=== PATIENT | female | born 1990 | race Caucasian/White ===

== ENCOUNTER 2021-11-29 13:03 | Outpatient (REF) | payer MEDICAID, SELFPAY ==
--- NOTE | ~2021-11-29 | XR_ITS ---
EXAMINATION: RIGHT HAND AND WRIST CLINICAL INFORMATION: Pain COMPARISON: None TECHNIQUE: 4 view right hand and wrist FINDINGS: There is no evidence of acute fracture or dislocation of the right hand or wrist. Joint spaces are maintained. No erosive changes seen. XR/XR hand wrist RT IMPRESSION: No significant bony abnormality of the right hand or wrist.
== END 2021-11-29 13:04 | disposition home or self-care (01) ==
LOC: HO.XRAY 13:03
PROVIDERS: PCP Nurse Practitioner; Visit Provider Nurse Practitioner
DX: M25.531 Pain in right wrist (principal)
CPT/HCPCS: 73110; 73130

== ENCOUNTER → 2022-01-17 13:19 | Outpatient (BNVA) | payer MEDICAID, SELFPAY | PROVIDERS: PCP Nurse Practitioner; Visit Provider Surgery | DX: M25.431 Effusion, right wrist (principal) | CPT/HCPCS: 99202 ==

== ENCOUNTER 2022-03-14 08:23 | Outpatient (REF) | payer MEDICAID, SELFPAY | END 2022-03-14 08:24 | disposition home or self-care (01) | LOC: HO.HOSX 08:23 | PROVIDERS: Visit Provider Orthopaedic Surgery | DX: Z13.89 Encounter for screening for other disorder (principal) ==

== ENCOUNTER 2025-04-07 08:27 | Outpatient (REF) | payer MEDICAID, SELFPAY ==
[2025-04-07 11:29] LABS: Hematocrit 40.0 % (37.0-47.0); Hemoglobin 13.9 g/dl (12.0-16.0); Mean Corpuscular HGB Conc 34.8 g/dl (31.0-35.0); Mean Corpuscular Hemoglobin 30.2 pg (27.0-33.0); Mean Corpuscular Volume 86.8 fL (80.0-98.0); NRBC Abs Auto 0.000 X10*3/uL (0.0-0.012); NRBC Pct Auto 0.0 /100WBC (0.0-0.2); Platelet Count 373 X10*3/uL (160-400); Red Blood Count 4.61 X10*6/uL (4.20-5.50); White Blood Count 9.4 X10*3/uL (4.8-10.8)
[2025-04-07 11:48] LABS: Hemoglobin A1C 137.5319 umol/L; Total Hemoglobin (HGBA1C) 3574.5972 umol/L
[2025-04-07 11:53] LABS: Alanine Aminotransferase 47 U/L (0-31); Albumin Level 4.5 g/dL (3.5-5.0); Alkaline Phosphatase 81 U/L (39-117); Anion Gap 10 (12-20); Aspartate Amino Transferase 34 U/L (5-31); Blood Urea Nitrogen 12 mg/dL (9-16); Calcium 9.3 mg/dL (8.4-10.2); Carbon Dioxide 24 mmol/L (22-29); Chloride 108 mmol/L (96-108); Cholesterol 189 mg/dL (<200); Estimated Glomerular Filt Rate > 60; HDL Cholesterol 58 mg/dL (>40); Potassium 4.1 mmol/L (3.3-5.1); Sodium 138 mmol/L (135-145); Total Protein 7.4 g/dL (6.5-8.0); Triglycerides 206 mg/dL (<150)
[2025-04-08 04:58] LABS: Syphilis Screen Nonreactive (Nonreactive)
[2025-04-08 06:00] LABS: HBS Num1 0.00 mIU/mL (0-7.99); HBc Num1 0.07 S/CO (0.00-0.79); HBsAGNum1 0.47 S/CO (0.00-0.99); HIV Num 1 0.04 S/CO (0.00-0.99); Hepatitis B Surface Antigen Negative (Negative); ~HepC Num1 0.12 S/CO (0.00-0.79); ~Hepatitis B Surface Antibody NONREACTIVE (Nonreactive); ~Hepatitis C Antibody Nonreactive (Nonreactive)
[2025-04-08 06:53] LABS: Rubeola IgG (Measles) <13.50 AU/mL
== END 2025-04-07 08:28 | disposition home or self-care (01) ==
LOC: HO.HHCL 08:27
PROVIDERS: PCP Student in an Organized Health Care Education/Training Program; Visit Provider Student in an Organized Health Care Education/Training Program
DX: Z00.00 Encounter for general adult medical examination without abnormal findings (principal)
CPT/HCPCS: 36415; 80053; 80061; 82306; 83036; 84443; 85027; 86704; 86706; 86735; 86762; 86765; 86780; 86803; 87340; 87389

== ENCOUNTER 2025-04-14 09:23 | Outpatient (REF) | payer MEDICAID, SELFPAY ==
--- OUTSIDE RECORDS SUMMARY | 2025-04-14 09:00 | XMS_ITS | Encounter Summary ---
Author Organization [employer] Address [address] [facility] 7t [place] [address] Care Team Providers Care Service Assistant Name Role Phone Sandy Riddle MD Primary Care Pro vider Encounter Details Date Type Department Care Team (Latest Contact Info) Description 04/14/2025 9:00 AM EDT Office Visit [facility] MEDICINE [address] [place] [address] Sandy Riddle MD [address] [place] [address] Transaminitis (Primary Dx); Health care maintenance; Amenorrhea; Encounter for immunization Social History Tobacco Use Types Packs/Day Years Used Date Smoking Tobacco: Never Smokeless Tobacco: Never Tobacco Cessation:Counseling Given: Not Answered Alcohol Use Standard Drinks/Week Comments Defer 0 (1 standard drink = 0.6 oz pur e alcohol) Depression Answer Date Recorded Patient Health Questionnaire-9 Score 0 12/11/2024 Patient Health Questionnaire-9 Score 0 12/11/2024 Last PHQ-9: Questionnaire Data Not on file 0 12/11/2024 Housing Stability Answer Date Recorded What is your housing situation today? I have blair peterson 01/21/[address] you li ve. Do you have problems with any of the following? None of the above 01/21/2024 Food Insecurity Answer Date Recorded Within the past 12 months, y ou worried that your food would run out before you got money to buy more: Never True 12/04/2024 Within the past 12 months,th e food you bought just didn't last and you didn't have enough money to get more: Never True Transportation Answer Date Recorded In the past 12 months, has l ack of transportation kept you from medical appts, meetings, work or from getting things needed for daily living? No 12/04/2024 Utilities Answer Date Recorded In the past 12 months, has t he electric, gas, oil or water company threatened to shut off services in your home? No 01/21/2024 Depression Answer Date Recorded Patient Health Questionnaire-2 Score 0 12/11/2024 Internet Access Answer Date Recorded Internet Access Q1 Yes 03/23/2024 Internet Access Q2 Not on file 03/23/2024 Comments No Sex and Gender Information Value Date Recorded Sex Assigned at Female 05/21/2022 10:31 AM EDT Legal Sex Female 10:31 AM EDT Gender Identity Choose not to disclose 10:31 AM EDT Sexual Orientation Straight 12/11/2024 10 :12 AM EDT documented as of this encounter Last Filed Vital Signs Vital Sign Reading Time Taken Comments Blood Pressure 132/82 04/14/2025 9:02 AM EDT Pulse 89 04/14/2025 9:02 AM EDT Temperature 36.2 C (97.1 F) 04/14/2025 9:02 AM EDT Respiratory Rate 20 04/14/2025 9:02 AM EDT Oxygen Saturation 99% 04/14/2025 9:02 AM EDT Inhaled Oxygen Concentration - - Weight 81.6 kg (180 lb) 04/14/2025 9:02 AM EDT Height 154.1 cm (5' 0.67 ) 04/14/2025 9:02 AM ED T Body Mass Index 34.38 04/14/2025 9:02 AM EDT documented in this encounter Plan of Treatment Upcoming Encounters Date Type Department Care Team (Late st Contact Info) Description 05/14/2025 9:00 AM EDT Nutrition [facility] DIABETES/NUTRITION [address] [place] [address] [place] [address] Scheduled Orders Name Type Priority Associated Diagnoses Orde r Schedule Comprehensive Metabolic Panel Lab Routine Transaminitis Expected: 07/14/2025 (Approximate), Expires: 04/14/2026 documented as of this encounter Procedures Procedure Name Priority Date/Time Associated Diagnosis Comments POCT , URINE Routine 04/14/2025 9:33 AM EDT Amenorrhea CHLAMYDIA/TRICHOMON /NEISSERIA GONORRHOEAE, PCR, URINE Routine 04/14/2025 9:23 AM EDT Health care maintenance documented in this encounter Results * POCT Urine (04/14/2025 9:33 AM EDT) Preg Test, Ur Negative Negative, Indeterminate, None Detected, Invalid, Specimen unsatisfactory for evaluation, Weakly Positive, 2+ QC Media Lot # [id number] Lot# Expiration Date [id number] Urine 04/14/2025 9:33 AM EDT Sandy Wesley MD POINT OF CARE MIKAELA T ENTER/EDIT ORDERABLES Final Result * Chlamydia/Trichomonas/Neisseria gonorrhoeae, PCR, Urine (04/14/2025 9:23 AM EDT) CT PCR, Urine NOT DETECTED Not Detect. [facility] Comment:A not detected test result does not exclude the possibilityof infection because test results can be affected byimproper specimen collection, concurrent antibiotic therapy,or the number of organisms in the specimen which may bebelow the sensitivity of the test. As with many diagnostictests, results from the Xpert CT/NG assay should beinterpreted in conjunction with other laboratory andclinical data available to the clinician.The Xpert CT/NG assay should not be used for the evaluationof suspected sexual abuse or for other medico-legalindications. Additional testing is recommended in anycircumstance when false positive or false negative resultscould lead to adverse medical, social or psychologicalconsequences. NG PCR, Urine NOT DETECTED Not Detect. [facility] Comment:A not detected test result does not exclude the possibilityof infection because test results can be affected byimproper specimen collection, concurrent antibiotic therapy,or the number of organisms in the specimen which may bebelow the sensitivity of the test. As with many diagnostictests, results from the Xpert CT/NG assay should beinterpreted in conjunction with other laboratory andclinical data available to the clinician.The Xpert CT/NG assay should not be used for the evaluationof suspected sexual abuse or for other medico-legalindications. Additional testing is recommended in anycircumstance when false positive or false negative resultscould lead to adverse medical, social or psychologicalconsequences. Urine (Urine, Random) 04/14/2025 9:23 AM EDT 04/14/2025 12:04 PM EDT us Sandy Wesley MD LAB URINE ORDERAB LES Final Result [facility] [address] [place] [phone] documented in this encounter Visit Diagnoses Diagnosis Transaminitis- Primary Nonspecific elevation of levels of transaminase or lactic acid dehydrogenase (LDH) Health care maintenance Amenorrhea Absence of menstruation Encounter for immunization documented in this encounter Additional Health Concerns Assessment Noted Time PHQ-9 Depression Total Score: 0 12/12/19 25 9:48 AM EDT documented as of this encounter Care Teams Service Assistant Relationship Specialty Start Date End Date Sandy Riddle MD [address] [place] [id number] PCP - General Internal Medicine 12/14/22 documented as of this encounter
[2025-04-14 13:49] LABS: CT PCR Urine NOT DETECTED (Not Detect.); NG PCR Urine NOT DETECTED (Not Detect.)
--- OUTSIDE RECORDS SUMMARY | 2025-04-14 14:54 | XMS_ITS | Encounter Summary ---
Author Organization [employer] Address [address] [facility] 7t [place] [address] Care Team Providers Care Lieutenant General Name Role Phone Sandy Riddle MD Primary Care Pro vider Encounter Details Date Type Department Care Team (Latest Contact Info) Description 04/07/2025 Results Follow-Up [facility] MEDICINE [address] [place] [phone] Sandy Riddle MD [address] [place] [address] CBC, Comprehensive Metabolic Panel, Hemoglobin A1c, Additional followed-up results: 3 Social History Tobacco Use Types Packs/Day Years Used Date Smoking Tobacco: Never Smokeless Tobacco: Never Alcohol Use Standard Drinks/Week Comments Defer 0 [...] AM EDT documented as of this encounter Miscellaneous Notes * Result Encounter Note - Sandy Wesley MD - 04/07/2025 9:17 PM EDT Please call patient to advise to come to already scheduled apt with me to go over abnormal labs Thanks documented in this encounter Plan of Treatment Upcoming Encounters Date Type Department Care Team (Late st Contact Info) Description 05/14/2025 9:00 AM EDT Nutrition [facility] DIABETES/NUTRITION [address] [place] [address] [place] [address] documented as of this encounter Visit Diagnoses Not on filedocumented in this encounter Additional Health Concerns Assessment Noted Time PHQ-9 Depression Total Score: 0 12/12/19 25 9:48 AM EDT documented as of this encounter Care Teams Lieutenant General Relationship Specialty Start Date End Date Sandy Riddle MD [address] [place] [address] PCP - General Internal Medicine 12/14/22 documented as of this encounter
--- OUTSIDE RECORDS SUMMARY | 2025-04-14 14:54 | XMS_ITS | Encounter Summary ---
Author Organization [employer] Address [address] [facility] [address]t [place] [address] Care Team Providers Care Machine Assembler Supervisor Name Role Phone Sandy Riddle MD Primary Care Pro vider Reason for Visit * Reason Onset Date Comments appt 04/10/2024 Encounter Details Date Type Department Care Team ([facility] st Contact Info) Description 04/10/2024 Telephone C ADULT DENTAL [address] [place] [address] Cat Taylor, DDS [address] [place] [address] appt Social History Tobacco Use Types Packs/Day Years Used Date Smoking Tobacco: Never Smokeless Tobacco: Never Housing Stability Answer Date Recorded What is your housing situation today? I have blair peterson 01/21/[address] you li ve. Do you have problems with any of the following? None of the above 01/21/2024 Food Insecurity Answer Date Recorded Within the past 12 months, y ou worried that your food would run out before you got money to buy more: Sometimes True 2023 Within the past 12 months,th e food you bought just didn't last and you didn't have enough money to get more: Sometimes True 01/21/2024 Transportation Answer Date Recorded In the past 12 months, has l ack of transportation kept you from medical appts, meetings, work or from getting things needed for daily living? Yes, it has kept me from non-medical meetings, work, or getting things that I need;Yes, it has kept me from medical appointments or getting medications. 01/21/2024 Utilities Answer Date Recorded In the past 12 months, has t he electric, gas, oil or water company threatened to shut off services in your home? No 01/21/2024 Internet Access Answer Date Recorded Internet Access Q1 Yes 03/23/2024 Internet Access Q2 Not on file 03/23/2024 Comments Unknown Sex and Gender Information Value Date Recorded Sex Assigned at Female 05/21/2022 10:31 AM EDT Legal Sex Female 10:31 AM EDT Gender Identity Choose not to disclose 10:31 AM EDT Sexual Orientation Straight 12/11/2024 10 :12 AM EDT documented as of this encounter Miscellaneous Notes * Telephone Encounter - Mariam Gaffney - 04/10/2024 9:38 AM EDT Patient called in to cancel her appt because missed bus. Patient would like new appt scheduled for a Saturday or Saturday. Out of PAR timeframe DR documented in this encounter Plan of Treatment Upcoming Encounters Date Type Department Care Team (Late st Contact Info) Description 05/14/2025 9:00 AM EDT Nutrition [facility] DIABETES/NUTRITION [address] [place] [address] [place] [address] documented as of this encounter Visit Diagnoses Not on filedocumented in this encounter Care Teams Machine Assembler Supervisor Relationship Specialty Start Date End Date Sandy Riddle MD [address] [place] [address] PCP - General Internal Medicine 12/14/22 documented as of this encounter
--- OUTSIDE RECORDS SUMMARY | 2025-04-14 14:54 | XMS_ITS | Encounter Summary ---
Author Organization [employer] Address [address] [facility] 7t [place] [address] Care Team Providers Care Paper Novelty Maker Name Role Phone Sandy Riddle MD Primary Care Pro vider Encounter Details Date Type Department Care Team (Latest Contact Info) Description 04/14/2025 Travel Social History Tobacco Use Types Packs/Day Years [...] AM EDT documented as of this encounter Plan of Treatment Upcoming Encounters Date Type Department Care Team (Late st Contact Info) Description 05/14/2025 9:00 AM EDT Nutrition [facility] DIABETES/NUTRITION [address] [place], [place] [phone] Kristi Duke RD [address] [place], [place] [phone] documented as of this encounter Visit Diagnoses Not on filedocumented in this encounter Additional Health Concerns Assessment Noted Time PHQ-9 Depression Total Score: 0 12/12/19 25 9:48 AM EDT documented as of this encounter Care Teams Paper Novelty Maker Relationship Specialty Start Date End Date Sandy Riddle MD [address] [place], [place] [phone] PCP - General Internal Medicine 12/14/22 documented as of this encounter
--- OUTSIDE RECORDS SUMMARY | 2025-04-14 14:54 | XMS_ITS | Encounter Summary ---
Author Organization [employer] Address [address] [facility] [address] 7[address] [place] [address] Care Team Providers Care Secret Code Expert Name Role Phone Sandy Riddle MD Primary Care Pro vider Encounter Details Date Type Department Care Team (Late st Contact Info) Description 08/02/2024 Orders Only [facility] MEDICINE [address] [place] [address] ProviderJamie MD Social History Tobacco Use Types Packs/Day Years Used Date Smoking Tobacco: Never Smokeless Tobacco: Never Housing Stability Answer Date Recorded What is your housing situation today? I have blair sing 01/21/[address] you li [...] Info) Description 05/14/2025 9:00 AM EDT Nutrition [facility] DIABETES/NUTRITION [address] [place], [place] [phone] Kristi Duke [address] [place], [place] [phone] documented as of this encounter Procedures Procedure Name Priority Date/Time Associated Diagnosis Comments HM PAP/HPV Routine 08/16/2023 2:18 PM EST documented in this encounter Results * HM PAP/HPV (08/16/2023 2:18 PM EST) Historical Provider HEALTH MAINTENANCE Final Result documented in this encounter Visit Diagnoses Not on filedocumented in this encounter Care Teams Secret Code Expert Relationship Specialty Start Date End Date Sandy Riddle MD [address] [place] [address] PCP - General Internal Medicine 12/14/22 documented as of this encounter
--- OUTSIDE RECORDS SUMMARY | 2025-04-14 14:54 | XMS_ITS | Encounter Summary ---
Author Organization [employer] [facility] Address [address] [facility] 7 [place] [address] Care Team Providers Care Stocking Inspector Name Role Phone Dejah ChaoP Primary Care Provider Sandy Harman MD Primary Care Pro vider Encounter Details Date Type Department Care Team (Latest Contact Info) Description 07/04/2021 Abstract [facility] CONVERSIONS Dental, Provider, DDS Social History Tobacco Use Types Packs/Day Years Used Date Smoking Tobacco: Never Assessed Comments Unknown Sex and Gender Information Value [...] Info) Description 05/14/2025 9:00 AM EDT Nutrition [facility] DIABETES/NUTRITION [address] [place] [address] [place] [address] documented as of this encounter Visit Diagnoses Not on filedocumented in this encounter Care Teams Stocking Inspector Relationship Specialty Start Date End Date Dejah Chao FNP PCP - General Family Medicine 03/13/22 12/13/22 Sandy Riddle MD [address] [place] [address] PCP - General Internal Medicine 12/14/22 documented as of this encounter
--- OUTSIDE RECORDS SUMMARY | 2025-04-14 14:54 | XMS_ITS | Clinical Summary ---
Author Organization [employer] Address [address] [facility] [address] [place] [address] Care Team Providers Care Instructional Aide Name Role Phone Sandy Riddle MD Primary Care Pro vider Allergies No known active allergies Medications cholecalciferol (Vitamin D-3) 25 MCG (1000 UT) tablet Take 1 tablet (25 mcg) by mouth Once per day. 90 tablet 1 04/14/2025 6 Active famotidine (Pepcid) 20 MG tablet Take 1 tablet (20 mg) by mouth if needed at bedtime for heartburn. 30 tablet 04/14/2025 5 Active Active Problems Problem Noted Date Diagnosed Date Hypertension in , p reeclampsia, severe, delivered/ 02/17/2025 Class 2 obesity 02/17/2025 History of recurrent miscarriages 01/04/2025 Overview (01/04/2025): Last in Jun 2019; at least 2 of these had very low levels HCGs followed by episode heavy bleeding. Normal SHG 05/03/2020 Non-Polish speaking patient 01/04/2025 Health care maintenance 12/12/2024 Gingival bleeding 02/27/2024 Elevated blood pressure affecting , ant epartum 12/27/2023 Pre-eclampsia in third trimester 12/27/2023 Nausea and vomiting during 08/16/2023 History of delivery, currently 08/14/2023 Overview (01/04/2025): Date of surgery: 06/10/21 at [facility] Reason for prior : Pre-eclampsia Incision type: low-transverse Records requested/reviewed: Contraindications to TOLAC include > 2 prior births, prior uterine rupture or dehiscence, prior transfundal incision (classical, T, or J incisions; myomectomy with incision into uterine cavity or by surgeon's discretion), interpregnancy interval < 6 months Anterior placenta NO If anterior, schedule level 2 US Delivery route counseling: Preferred mode of delivery: TOLAC Consent signed: If calculator score <60%, schedule MD consult at 35-37 weeks: SCORE 48.2% Calculator: [email or web address]--good culat or History of pre-eclampsia in prior , currently 08/14/2023 Overview (01/04/2025): Severe, delivered at 34 weeks Basline HELLP labs, P/C ratio: Baseline HELLP labs normal. P/C ratio 0.23 Baby ASA at 12-14 wks History of delivery, currently 08/14/2023 Overview (01/04/2025): Primary c/s at 34w2d at [facility] due to pre-eclampsia. Supervision of high risk in [facility] 08/14/2023 Overview (01/04/2025): CNM OB-CMI score: 1 [08/14/2023] Group PN care? * screening declines Baby ASA indicated--pt counseled Rh pos GC/Chlam neg PAP 2023 NILM/neg Flu 08/23/23 COVID-19 vaccinated x3 Hgb 12.4 GTT 94 Repeat RPR * Tdap * EPDS * PPBC * GBS * Infant Feeding Plan Breast Missing teeth, acquired 05/27/2023 Dental plaque 05/27/2023 Obesity 09/16/2021 Gestational hypertension 09/16/2021 Encounters Date Type Department Care Team Description 04/14/2025 9:00 AM EDT Office Visit [address] [phone] Sandy Riddle MD Transaminitis (Primary Dx); Health care maintenance; Amenorrhea; Encounter for immunization 04/14/2025 Travel 04/12/2025 Telephone [facility] [address] [place] [phone] Ermelinda Beltran [place] 04/07/2025 Results Follow-Up [facility] [address] [place] [phone] Sandy Riddle MD CBC, Comprehensive Metabolic Panel, Hemoglobin A1c, Additional followed-up results: 3 03/10/2025 9:00 AM EDT Office Visit [facility] [address] [place] [phone] Schmitz-Christine, Cat, DDS Full coverage crown needed for root canal-treated tooth (Primary Dx) 02/17/2025 9:00 AM EDT Office Visit [facility] [address] [place] [phone] Schmitz-Christine, Cat, DDS Full coverage crown needed for root canal-treated tooth (Primary Dx) 01/20/2025 Telephone [facility] [address] [place] [phone] Sandy Riddle MD Referral 01/13/[address] [phone] Sandy Riddle MD Referral from Last 3 Months Immunizations Immunization Administration Dates Next Due Influenza injectable quadriv alent preservative free 08/23/2023,05/11/2021 Influenza, IIV3, injectable 06/10/2018 Influenza, Unspecified 06/10/2018 Influenza, seasonal, injecta ble, preservative free 04/14/2025 MMR 06/21/2021 Pfizer Covid-19 Vaccine 12+ 07/24/2021,,10/19/2020 Tdap 12/31/2023,05/30/2021,06/10/2018 Family History Medical History Relation Name Comments DM2 Father DM2, heart disease Mother Relation Name Status Comments Father Mother Social History Tobacco Use Types Packs/Day Years [...] Orientation Straight 12/11/2024 10 :12 AM EDT Last Filed Vital Signs Vital Sign Reading [...] Mass Index 34.38 04/14/2025 9:02 AM EDT Plan of Treatment Upcoming Encounters Date Type Department Care Team (Late st Contact Info) Description 05/14/2025 9:00 AM EDT Nutrition [facility] [address] [place] [address] Kristi Duke, RD [address] [place] [address] Health Maintenance Due Date Last Done Comments Family Planning (PISQ) 2005 HPV Vaccines (1 - 3-dose series) 2005 Hepatitis A Vaccines (1 of 2 - Risk 2-dose series) 2009 Hepatitis B Vaccines (1 of 3 - 19+ 3-dose series) 2009 Dental X-Ray: Full Mouth 07/05/2024 07/04/2021 COVID-19 Vaccine ( season) 2025 07/24/2021, 11/16/2020, 10/19/2020 Dental Oral Exam 05/31/2025 11/27/2024, 12/2022, 08/22/2022 Dental Prophylaxis 06/27/2025 12/25/2024, 0 02/27/2024, 05/27/2023 SDOH Screening 12/04/2025 12/04/2024 Alcohol/Substance Use Screening 12/11/2025 12/11/2024 Depression Screening 12/11/2025 12/11/2024, 12/12/19 Disability Screening 12/11/2025 12/11/2024 Dental X-Ray: Bitewings 03/11/2026 03/10/20, 11/27/2024, 02/27/2024, Additional history exists Diabetes: Hemoglobin A1C 04/07/2026 04/07/2025 Tobacco Screening 04/14/2026 04/14/2025 Cervical Cancer Screening 08/16/2028 HPV/Cotest 08/16/2028 Pap Smear 08/16/2028 08/16/2023 Lipid Panel 04/07/2030 04/07/2025 DTaP/Tdap/Td Vaccines (4 - Td or Tdap) 12/30/2033 12/31/2023, 05/30/2021, 06/10/2018 Zoster Vaccines (1 of 2) 2040 RSV Patients and Patients Aged 60 years or older (1 - 1-dose 75+ series) 2065 HIV Screening Completed 04/07/2025 Hepatitis C Screening Completed 04/07/2025 Influenza Vaccine Completed 04/14/2025, , 05/11/2021, Additional history exists HIB Vaccines Aged Out No longer eligi ble based on patient's age to complete this topic IPV Vaccines Aged Out No longer eligi ble based on patient's age to complete this topic Meningococcal B Vaccine Aged Out No l onger eligible based on patient's age to complete this topic Meningococcal Vaccine Aged Out No reva nida eligible based on patient's age to complete this topic Pneumococcal Vaccine: Pediatrics (0 to 5 Years) and At-Risk Patients (6 to 49) Years Aged Out No longer eligible based on patient's age to complete this topic RSV under 20 months Aged Out No longe r eligible based on patient's age to complete this topic Rotavirus Vaccines Aged Out No longer eligible based on patient's age to complete this topic Procedures Procedure Name Priority Date/Time Associated Diagnosis Comments POCT , URINE Routine 04/14/2025 9:33 AM EDT Amenorrhea CHLAMYDIA/TRICHOMONAS/ NEISSERIA GONORRHOEAE, PCR, URINE Routine 04/14/2025 9:23 AM EDT Health care maintenance MEASLES, MUMPS, AND RUBELLA (MMR) AB (IGG) PANEL, IMMUNE STATUS Routine 04/07/2025 8:32 AM EDT Annual physical exam VITAMIN D,25-OH,TOTAL,IA Routine 04/07/2025 8:32 AM EDT Annual physical exam TSH W/REFLEX TO FT4 Routine 04/07/2025 8 :32 AM EDT Annual physical exam SYPHILIS SCREEN Routine 04/07/2025 8:32 AM EDT Annual physical exam LIPID PANEL, STANDARD Routine 04/07/2025 8:32 AM EDT Annual physical exam HIV 1/2 ANTIGEN/ANTIBODY, FOURTH GENERATION W/RFL Routine 04/07/2025 8:32 AM EDT Annual physical exam HEPATITIS C AB W/REFL TO HCV RNA, QN, PCR Routine 04/07/2025 8:32 AM EDT Annual physical exam HEPATITIS B SURFACE ANTIGEN, EIA Routine 04/07/2025 8:32 AM EDT Annual physical exam HEPATITIS B SURFACE ANTIBODY, QUALITATIVE Routine 04/07/2025 8:32 AM EDT Annual physical exam HEPATITIS B CORE AB TOTAL Routine 04/07/2025 8:32 AM EDT Annual physical exam HEMOGLOBIN A1C Routine 04/07/2025 8:32 AM EDT Annual physical exam COMPREHENSIVE METABOLIC PANEL Routine 04/07/2025 8:32 AM EDT Annual physical exam CBC Routine 04/07/2025 8:32 AM EDT Annual physical exam CASE PRESENTATION, DETAILED AND EXTENSIVE TREATMENT PLANNING Routine 03/10/2025 9:00 AM EDT Full coverage crown needed for root canal-treated tooth INTRAORAL - PERIAPICAL FIRST RADIOGRAPHIC IMAGE Routine 03/10/2025 9:00 AM EDT Full coverage crown needed for root canal-treated tooth BITEWING - SINGLE RADIOGRAPHIC IMAGE Routine 03/10/2025 9:00 AM EDT Full coverage crown needed for root canal-treated tooth 19 CROWN - PORCELAIN/CERAMIC Routine 03/10/2025 9:00 AM EDT Full coverage crown needed for root canal-treated tooth CASE PRESENTATION, DETAILED AND EXTENSIVE TREATMENT PLANNING Routine 02/17/2025 9:00 AM EDT Full coverage crown needed for root canal-treated tooth INTRAORAL - PERIAPICAL FIRST RADIOGRAPHIC IMAGE Routine 02/17/2025 9:00 AM EDT Full coverage crown needed for root canal-treated tooth 19 CROWN PREP Routine 02/17/2025 9:00 AM EDT Full coverage crown needed for root canal-treated tooth 19 PREFABRICATED POST AND CORE IN ADDITION TO CROWN Routine 02/17/2025 9:00 AM EDT Full coverage crown needed for root canal-treated tooth PROPHYLAXIS - ADULT Routine 12/25/2024 2 :00 PM EDT Dental plaque Missing teeth, acquired Gingival bleeding PERIODIC ORAL EVALUATION - ESTABLISHED PATIENT Routine 11/27/2024 11:00 AM EDT HM PAP/HPV Routine 08/16/2023 2:18 PM EST from Last 3 Months or Most Recently Relevant to Health Maintenance Results * POCT Urine (04/14/2025 9:33 AM EDT) Preg Test, Ur Negative Negative, Indeterminate, None Detected, Invalid, Specimen unsatisfactory for evaluation, Weakly Positive, 2+ QC Media Lot # [id number] Lot# Expiration Date [id number] Urine 04/14/2025 9:33 AM EDT Sandy Wesley MD POINT OF CARE MIKAELA T ENTER/EDIT ORDERABLES Final Result * Chlamydia/Trichomonas/Neisseria gonorrhoeae, PCR, Urine (04/14/2025 9:23 AM EDT) CT PCR, Urine NOT DETECTED Not Detect. [facility] Comment:A not detected test result [...] NG PCR, Urine NOT DETECTED Not Detect. [facility] Comment:A not detected test result [...] 9:23 AM EDT 04/14/2025 12:04 PM EDT Sandy Wesley MD LAB URINE ORDERAB LES Final Result Performing Organization Address [facility] Co de Phone Number [facility] [address] [place] [phone] * Syphilis Screen (04/07/2025 8:32 AM EDT) Syphilis Screen Nonreactive Nonreactive [facility] Blood 04/07/2025 8:32 AM EDT 04/07/2025 11:14 AM EDT Sandy Wesley MD LAB BLOOD ORDERAB LES Final Result Performing Organization Address [facility] de Phone Number [facility] [address] [place] [phone] * (ABNORMAL) Vitamin D, 25-Hydroxy, Total, Immunoassay (04/07/2025 8:32 AM EDT) Vitamin D 25-OH Total 27.2(L) >30 ng/mL [facility] Comment: Health Based Reference Values*< 20 ng/mL Lyetawjmw03-13 ng/mL Insufficient> 30 ng/mL Sufficient*Preston LEBRON. N Engl J Med. 2007;357:266-280There is no well-established upper level of normal vitamin Dlevels. Some laboratories use 50 ng/mL as an upper limit ofnormal. However, toxicity is patient-dependent and may occurat any level. Careful correlation with the patient'spresentation is necessary and, if there is concern forvitamin D toxicity, treatment should be consideredirrespective of the serum level.Care must be taken in interpreting Vitamin D results fromdifferent laboratories and methodologies. Published datademonstrated that results from patients undergoinghemodialysis may show a negative bias when tested withvarious automated 25-OH vitamin D assays when compared toLC-MS/MS.When testing samples from patients whose predominant form ofVitamin D is Vitamin D2, such as patients receiving VitaminD2 supplementation, results that are subtherapeutic shouldbe confirmed with another method such as LC-MS/MS. Blood Venous blood specimen / Unknown 04/07/2025 8:32 AM EDT 04/07/2025 11:14 AM EDT us Sandy Wesley MD LAB BLOOD ORDERAB LES Final Result Performing Organization Address City/[facility]/ZIP Co de Phone Number [facility] [address] [place] [phone] * TSH with Reflex to Free T4 (04/07/2025 8:32 AM EDT) [facility] Signature TSH reflex Free T4 0.93 0.32 - 4.0 uIU/mL [facility] Blood 04/07/2025 8:32 AM EDT 04/07/2025 11:14 AM EDT us Sandy Wesley MD LAB BLOOD ORDERAB LES Final Result [facility] [address] [place] [phone] * (ABNORMAL) Measles, Mumps, and Rubella (MMR) Antibodies??(IgG) Panel, Immune Status (04/07/2025 8:32 AM EDT) Pathologist [facility] Mumps Virus IgG Antibody <9.00(A) AU/mL [facility] Comment:AU/mL Interpretation ------- <9.00 Not consistent with immunity9.00-10.99 Equivocal>10.99 Consistent with immunityThe presence of mumps IgG antibody suggests immunizationor past or current infection with mumps virus. Rubella IgG Antibody 11.50 Index [facility] Comment:Index Interpretation ----- <0.90 Not consistent with immunity 0.90-0.99 Equivocal > or = 1.00 Consistent with immunityThe presence of rubella IgG antibody suggestsimmunization or past or current infection withrubella virus.THIS TEST WAS PERFORMED AT:[facility] [place] [phone] KIRK MD Rubeola IgG (Measles) <13.50(A ) AU/mL [facility] Comment:AU/mL Interpretation ----- <13.50 Not consistent with uxzbuxxa90.50-16.49 Equivocal>16.49 Consistent with immunityThe presence of measles IgG suggests immunization orpast or current infection with measles virus.For additional information, please refer tohttp://education.Pin or Peg/faq/[email or web address](This link is being provided for informational/educational purposes only.) Blood Venous blood specimen / Unknown 04/07/2025 8:32 AM EDT 04/07/2025 11:14 AM EDT us Sandy Wesley MD LAB BLOOD ORDERAB LES Final Result [facility] [address] [place] [phone] * Hepatitis C Antibody with Reflex to HCV, RNA, Quantitative, Real-Time PCR (04/07/2025 8:32 AM EDT) Hepatitis C Antibody Nonreactive Nonreactive [facility] Comment:Antibodies to HCV no t detected; does not exclude early acuteHCV infection. Blood Venous blood specimen / Unknown 04/07/2025 8:32 AM EDT 04/07/2025 11:14 AM EDT us Sandy Wesley MD LAB BLOOD ORDERAB LES Final Result Performing Organization Address City/[facility] Co de Phone Number [facility] [address] [place] [phone] * Hepatitis B surface antigen, EIA (04/07/2025 8:32 AM EDT) Hepatitis B Surface Ag Negative Negative [facility] Blood Venous blood specimen / Unknown 04/07/2025 8:32 AM EDT 04/07/2025 11:14 AM EDT us Sandy Wesley MD LAB BLOOD ORDERAB LES Final Result Performing Organization Address [facility] Co de Phone Number [facility] [address] [place] [phone] * Hepatitis B Core Antibody, Total (04/07/2025 8:32 AM EDT) Hepatitis B Core Antibody Nonreactive Nonreactive [facility] Blood Venous blood specimen / Unknown 04/07/2025 8:32 AM EDT 04/07/2025 11:14 AM EDT us Sandy Wesley MD LAB BLOOD ORDERAB LES Final Result Performing Organization Address [facility] Co de Phone Number [facility] [address] [place] [phone] * HIV-1/2 Antigen and Antibodies, Fourth Generation, with Reflexes (04/07/2025 8:32 AM EDT) HIV AB/AG Nonreactive Nonreactive [facility] Comment:HIV-1 p24 Ag and/or HIV-1/HIV-2 Ab not detected.A test result that is nonreactive does not exclude thepossibility of exposure to or infection with HIV-1 and/orHIV-2. Nonreactive results in this assay for individualswith prior exposure to HIV-1 and/or HIV-2 may be due toantigen and antibody levels that are below the limit ofdetection of this assay.The [employer] HIV Ag/Ab Combo assay result andsupplemental assay results should be interpreted inconjunction with the patient's clinical presentation,history and other laboratory results. If the results areinconsistent with clinical evidence, additional testing issuggested to confirm the result. Blood Venous blood specimen / Unknown 04/07/2025 8:32 AM EDT 04/07/2025 11:14 AM EDT us Sandy Wesley MD LAB BLOOD ORDERAB LES Final Result Performing Organization Address City/[facility]/ZIP Co de Phone Number [facility] [address] [place] [phone] * Hepatitis B Surface Antibody, Qualitative (04/07/2025 8:32 AM EDT) Pathologist [facility] ~Hepatitis B Surface Antibody NONREACTIVE Nonreactive [facility] Comment:Nonreactive: < 8.00 mIU/mL Blood Venous blood specimen / Unknown 04/07/2025 8:32 AM EDT 04/07/2025 11:14 AM EDT us Sandy Wesley MD LAB BLOOD ORDERAB LES Final Result Performing Organization Address City/[facility]/ZIP Co de Phone Number [facility] [address] [place] [phone] * CBC (04/07/2025 8:32 AM EDT) Pathologist [facility] White Blood Count 9.4 4.8 - 10.8 X10*3/uL [facility] Red Blood Count 4.61 4.20 - 5.50 X10*6/uL [facility] Hemoglobin 13.9 12.0 - 16.0 g/dl [facility] Hematocrit 40.0 37.0 - 47.0 % [facility] Mean Corpuscular Volume 86.8 80.0 - 98.0 fL [facility] Mean Corpuscular Hemoglobin 30.2 27.0 - 33.0 pg [facility] Mean Corpuscular HGB Conc 34.8 31.0 - 35.0 g/dl [facility] Red Cell Distribution Width 13.1 11.0 - 16.0 % [facility] Platelet Count 373 160 - 400 X10*3/uL [facility] Mean Platelet Volume 10.4 9.4 - 12.3 fL [facility] NRBC Pct Auto 0.0 0.0 - 0.2 /100WBC [facility] NRBC Abs Auto 0.000 0.0 - 0.012 X10*3/uL [facility] Blood Venous blood specimen / Unknown 04/07/2025 8:32 AM EDT 04/07/2025 11:20 AM EDT us Sandy Wesley MD LAB BLOOD ORDERAB LES Final Result [facility] [address] [place] [phone] * Hemoglobin A1c (04/07/2025 8:32 AM EDT) Hemoglobin A1c 5.7 <6.0 % [facility] Comment:Hemoglobin A1C Refer ence Range Adults: 4.8 - 6.0 % Non diabetic: < 6.0 % Goal: < 7.0 %Additional Action Suggested: > 8.0 %Note: Hemoglobin A1c results are invalid for patients with abnormal amounts of HbF. Blood transfusions may impact the HbA1c concentration in the patient sample. Estimated Average Glucose 117 mg/dL [facility] Comment:eAG = Estimated ave rage glucose which is %A1C expressed asaverage glucose, using the formula of the T6J-SvghpajQlvropj Glucose study (ADAG), Diabetes Care, Vol.31,#8,Feb. 2007 Blood Venous blood specimen / Unknown 04/07/2025 8:32 AM EDT 04/07/2025 11:14 AM EDT us Sandy Wesley MD LAB BLOOD ORDERAB LES Final Result Performing Organization Address City/[facility]/ZIP Co de Phone Number [facility] [address] [place] [phone] * (ABNORMAL) Lipid Panel, Standard (04/07/2025 8:32 AM EDT) Triglycerides 206(H) <150 mg/dL [facility] Comment:Desirable Triglyceri de: less than 150 mg/dLBorderline High Triglyceride 150-199 mg/dLHigh Triglyceride: 200-499 mg/dLVery High Triglyceride: greater than or equal to 5OO mg/dL Cholesterol 189 <200 mg/dL [facility] Comment:Desirable Cholestero l: less than 200 mg/dLBorderline High Cholesterol: 200-239 mg/dLHigh Cholesterol: greater than 239 mg/dL LDL Cholesterol Calculated 90 <100 mg/dL [facility] Comment:Desirable LDL: less than 100 mg/dLNear Optimal/Above Optimal LDL: 110- 129 mg/dLBorderline High LDL: 130-159 mg/dLHigh LDL: 160-189 mg/dLVery High LDL: greater than or equal to 190 mg/dL HDL Cholesterol 58 >40 mg/dL [facility] Comment:Desirable HDL: great er than 40 mg/dL Note: This HDL assay may give artificially low results in patients with liver disease. Blood Venous blood specimen / Unknown 04/07/2025 8:32 AM EDT 04/07/2025 11:14 AM EDT us Sandy Wesley MD LAB BLOOD ORDERAB LES Final Result Performing Organization Address [facility]/ZIP Co de Phone Number [facility] [address] [place] [phone] * (ABNORMAL) Comprehensive Metabolic Panel (04/07/2025 8:32 AM EDT) Sodium 138 135 - 145 mmol/L [facility] Potassium 4.1 3.3 - 5.1 mmol/L [facility] Chloride 108 96 - 108 mmol/L [facility] Carbon Dioxide 24 22 - 29 mmol/L [facility] Anion Gap 10(L) 12 - 20 [facility] Urea Nitrogen (BUN) 12 9 - 16 mg/dL [facility] Creatinine, Serum 0.62 0.5 - 1.4 mg/dL [facility] Estimated Glomerular Filt Rate >60 [facility] Comment:Chronic Kidney Disea se: Estimated GFR < 60 mL/min/1.30e2Mouinv Kidney Disease: Estimated GFR < 15 mL/min/1.73m2 Glucose 112 60 - 115 mg/dL [facility] Calcium 9.3 8.4 - 10.2 mg/dL [facility] Bilirubin, Total 0.4 0.0 - 1.0 mg/dL [facility] Aspartate Amino Transferase 34(H) 5 - 31 U/L [facility] Alanine Aminotransferase 47(H) 0 - 31 U/L [facility] Total Protein 7.4 6.5 - 8.0 g/dL [facility] Albumin Level 4.5 3.5 - 5.0 g/dL [facility] Alkaline Phosphatase 81 39 - 117 U/L [facility] Blood Venous blood specimen / Unknown 04/07/2025 8:32 AM EDT 04/07/2025 11:14 AM EDT us Sandy Wesley MD LAB BLOOD ORDERAB LES Final Result [facility] [address] [place] [phone] * HM PAP/HPV (08/16/2023 2:18 PM EST) us Historical Provider HEALTH MAINTENANCE Final Result from Last 3 Months or Most Recently Relevant to Health Maintenance Insurance HSN F[employer] [facility] [employer] STAND ADULT Care Teams Instructional Aide Relationship Specialty Start Date End Date Sandy Riddle MD [address] [place] [phone] PCP - General Internal Medicine 12/14/22
--- OUTSIDE RECORDS SUMMARY | 2025-04-14 14:54 | XMS_ITS | Encounter Summary ---
Author Organization [employer] Address [address] [facility] 7[address] [place] [address] Care Team Providers Care Keg Washer Name Role Phone Dejah Chao METAL INSPECTOR Primary Care Provider Sandy Harman MD Primary Care Pro vider Encounter Details Date Type Department Care Team (Late st Contact Info) Description 09/21/2022 Abstract [facility] ADULT DENTAL [address] [place] [address] Cat Taylor, DDS [address] [place] [address] Social History Tobacco Use Types Packs/Day Years Used Date Smoking Tobacco: Never Smokeless Tobacco: Never Comments Unknown Sex and Gender Information Value Date Recorded Sex Assigned at Female 05/21/2022 10:31 AM EDT Legal Sex Female 10:31 AM EDT Gender Identity Choose not to disclose 10:31 AM EDT Sexual Orientation Straight 12/11/2024 10 :12 AM EDT COVID-19 Exposure Response Date Recorded In the last 10 days, have yo u been in contact with someone who was confirmed or suspected to have Coronavirus/COVID-19? No / Unsure 09/14/2022 8:31 AM EST documented as of this encounter Plan of Treatment Upcoming Encounters Date Type Department Care Team (Late st Contact Info) Description 05/14/2025 9:00 AM EDT Nutrition [facility] DIABETES/NUTRITION [address] [place] [address] [place] [address] documented as of this encounter Visit Diagnoses Not on filedocumented in this encounter Care Teams Keg Washer Relationship Specialty Start Date End Date Dejah Chao FNP PCP - General Family Medicine 03/13/22 12/13/22 Sandy Riddle MD [address] [place] [id number] PCP - General Internal Medicine 12/14/22 documented as of this encounter
--- OUTSIDE RECORDS SUMMARY | 2025-04-14 14:54 | XMS_ITS | Encounter Summary ---
Author Organization [facility] Address [email or web address] [facility] [address] [place] [address] Phone Care Team Providers Care Scheduler Name Role Phone Unknown, Unknown Primary Care Provider Jo huerta Pcp, Unknown Primary Care Provider Shayan Fabian MD Primary Care Provide r Encounter Details Date Type Department Care Team ([facility] st Contact Info) Description 05/08/2018 Procedure Pass [facility], Ct Scan - [address] [address] Social History Tobacco Use Types Packs/Day Years Used Date Smoking Tobacco: Never Alcohol Use Standard Drinks/Week Comments No 0 (1 standard drink = 0.6 oz pur e alcohol) Comments Unknown Sex and Gender Information Value Date Recorded Sex Assigned at Female 06/14/2021 5:09 PM EST Legal Sex Female 9:02 PM EDT Gender Identity Female 06/14/2021 5:09 PM EST Sexual Orientation Straight 06/14/2021 5: 09 PM EST documented as of this encounter Plan of Treatment Not on file documented as of this encounter Visit Diagnoses Not on filedocumented in this encounter Care Teams Scheduler Relationship Specialty Start Date End Date Unknown, Unknown, PCP - General 05/08/18 07/09/19 Pcp, Unknown PCP - General 07/10/19 03/08/21 Shayan Farris MD [address] [facility] [address] [place] [address] PCP - General Family Medicine 03/09/21 documented as of this encounter Additional Source Comments The information contained in this document represents components of the legal health record. It is not the complete legal health record.[facility]
--- OUTSIDE RECORDS SUMMARY | 2025-04-14 14:54 | XMS_ITS | Clinical Summary ---
Author Organization [facility] Address [address] [place] [address] Phone Care Team Providers Care Systems Analyst Name Role Phone Shayan Farris MD Primary Care Provide r Allergies No known active allergies Medications vitamins-DHA (DUET DHA ) 29 mg iron-1 mg -430 mg Cmpk Take 1 packet by mouth daily. Active VITAMIN B-6 25 MG tablet TOME ANNETTE TABLETA FANY VECES AL DAILY 270 tablet 1 09/10/2023 Active Active Problems Problem Noted Date Diagnosed Date Elevated blood pressure affecting , ant epartum 12/27/2023 Assessment & Plan (12/27/2023 9:25 AM EDT): BP 136/90 today with 3+ protein in urine. She denies CLIFFORD, RUQ pain, visual changes. Does note some swelling developing over the past week. We discussed that she is likely developing pre-eclampsia again with this . Reviewed option for CBC evaluation with labs now vs outpatient labs today and return to office on next business day for repeat BP check and discussion of plan of care for remainder of . She prefers to do labs outpatient. We discussed that it is very important she call over the weekend with any severe headache, problems with her vision, decreased movement, severe swelling, RUQ pain. Discussed that she can present to ED if she is unable to reach someone from our practice. Reviewed how to use cell operation supervisor system. Pre-eclampsia in third trimester 12/27/2023 Nausea and vomiting during p regnancy prior to 22 weeks gestation 08/16/2023 Assessment & Plan (08/16/2023 3:06 PM EST): Unable to hold down food or fluids since last night, feeling like she might pass out. I recommended going to [facility] for IV hydration, CBC notified Unisom/B6 Rx'd although she may need more antiemetics based on eval at [facility] Nausea and vomiting during 08/16/2023 Assessment & Plan (09/27/2023 10:43 AM EST): Feeling much better! History of delivery, currently 08/14/2023 Overview (12/13/2023): Date of surgery: 06/10/21 at [facility] Reason for prior : Pre-eclampsia Incision type: [...] consult at 35-37 weeks: SCORE 48.2% Calculator: [email or web address]-gfwcb-cduob--good culat or Assessment & Plan (12/13/2023 10:18 AM EDT): TOLAC information and consent forms provided, disc with senior recruiter. Pt has someone at home who can look at them with her/translate, as they are in Portuguese. She will review and bring back next visit for continued discussion. Calculated calculator score after visit, 48.2% - please disc with pt NV and plan for MD consult 35-37 weeks. Assessment & Plan (08/22/2023 1:54 PM EST): States C/S was done due to slow progress with IOL and issues. Will request records. Will need full counseling at a follow up visit History of delivery, currently 08/14/2023 Overview (12/27/2023): Primary c/s at 34w2d at [facility] due to pre-eclampsia. Assessment & Plan (08/22/2023 1:54 PM EST): delivery was due to IOL for Pre-E with severe features History of pre-eclampsia in prior , currently 08/14/2023 Overview (12/27/2023): Severe, delivered at 34 weeks Basline HELLP labs, P/C ratio: Baseline HELLP labs normal. P/C ratio 0.23 Baby ASA at 12-14 wks Assessment & Plan (12/13/2023 9:48 AM EDT): Normotensive today, asymptomatic. Assessment & Plan (08/22/2023 1:55 PM EST): Baseline HELLP labs ordered with intake labs Recommended baby Asprin to start at 12-14 weeks, will try to get nausea under control first - review again at [place] Supervision of high risk in [facility] 08/14/2023 Overview (12/05/2023): CNM OB-CMI score: 1 [08/14/2023] Group PN care? * screening declines Baby ASA indicated--pt counseled Rh pos GC/Chlam neg PAP 2023 NILM/neg Flu 08/23/23 COVID-19 vaccinated x3 Hgb 12.4 GTT 94 Repeat RPR * Tdap * EPDS * PPBC * GBS * Feeding Plan Breast Assessment & Plan (12/27/2023 9:26 AM EDT): Feeling well. Visit today focused on elevated BP and plan of care, warning signs and symptoms. EPDS 1, briefly reviewed resources and expectations. Assessment & Plan (12/13/2023 9:31 AM EDT): Kush is a 33yo at 28w4d who presents to routine OB visit. Reports to be doing okay, but feels like she is struggling with could and cold symptoms since June. Has not noted any improvement in her cough over these months. Coughing during visit, lung sounds clear throughout. Denies chills or body aches. Covid-19 testing has been neg. Son had the flu last month per pt. Given persistence of cough for several months and that pt does not have a PCP, ordered z-pack for patient, reviewed rationale and how to take. We reviewed T3 lab results. Rev [facility]KC and disc T3 warning signs and when to call. Pt having molar pain - dental letter requested and given. RTO 2 wk. Assessment & Plan (11/15/2023 11:55 AM EDT): Video interpretor used to conduct visit Kush is doing well today- she is feeling abundant movement. Second trimester labs ordered today. Only concern is some new swelling in her hands and feet which has her concerned as this occurred in her first just prior to developing PEC. We reviewed that swelling with no other symptoms and normal blood pressures is not concerning but that she should call with any new symptoms. CAIT in 4 wks Assessment & Plan (10/18/2023 11:49 AM EDT): Kush seen with color repairer. Feeling well. Delighted to see baby on US today. No complaints, taking her vitamin Looking forward to feeling more movement We discussed smaller cephalic measurements--may need follow up scan, will await final read HC 7%ile and BPD 3%ile CAIT 4 wks Assessment & Plan (09/27/2023 10:50 AM EST): Kush is feeling well! So happy not to feel nauseas. Delighted to hear fm on doppler We discussed upcoming FAS--ordered. Plans to breastfeed GC/CT obtained and sent Briefly discussed pt's desires of TOLAC vs RCS--pt would like TOLAC if not contraindicated closer to term. Full counseling with consent at next 1-2 visits. CAIT 3 wks with US Assessment & Plan (08/23/2023 9:56 AM EST): Kush is feeling much better since starting unisom and vit B6. No complaints today. Will go to lab after visit for FOB labs, declines genetic screening Accepts flu vaccine today. CAIT 4 wks. Assessment & Plan (08/22/2023 1:56 PM EST): Labs are ordered Declines genetic testing Pap sent today Note for work written as patient works at [employer] and has been feeling overheated and unwell History of recurrent miscarriages Overview (05/03/2020): Last in Jun 2019; at least 2 of these had very low levels HCGs followed by episode heavy bleeding. Normal SHG 05/03/2020 Assessment & Plan (04/11/2020 5:09 PM EDT): Discussed w/u for recurrent 1st trimester loss,though so early that antiphosph antibody issues less likely Resolved Problems Problem Noted Date Diagnosed Date Resolved Date state 07/27/2021 08/14/2023 Assessment & Plan (07/27/2021 2:42 PM EST): Doing well, BP is normal; signs depression reviewed Severe preeclampsia, third trimester 06/19/2021 07/27/2021 Pre-eclampsia in third trimester 06/14/2021 07/27/2021 Overview (06/16/2021): 1 mildly elevated blood pressure on 06/13. HELLP labs normal. PC ratio not done. 06/14 presents for BP check. Again mildly elevated. Recommended that she be evaluated on CBC. Need for more monitoring and PC ratio reviewed. She prefers to do PC ratio at the lab and follow up as needed. 2x wkly HELLP labs Immediate eval of well being PE and serial BP (in office or CBC) 2x wkly visits Betamethasone if < 34 wks 1) 06/15/21, Returned for 2nd dose 06/16/21 2x wkly BPP/NST Growth q 3-4 wks Delivery at 37 wks Assessment & Plan (06/19/2021 4:33 PM EST): BP 148/98 and then 158/110 after NST. Reactive NST. Denies headache, visual changes, epigastric pain and swelling. Baby is active. To CBC for further monitoring. Assessment & Plan (06/15/2021 4:00 PM EST): A: IUP at 33 4/7 weeks GA here for testing for preeclampsia New development of CLIFFORD, also reports visual changes this morning which have resolved NST reactive, BPP 02/26 P: Rule out severe features HELLP labs ordered Tylenol ordered for CLIFFORD Reevaluate in 1 hour and once labs are back Reviewed with pt to report if visual changes, repeat Visit conducted with video intepretor Will consult with MD once results are back Assessment & Plan (06/14/2021 1:31 PM EST): 1 mildly elevated blood pressure on 06/13. HELLP labs normal. PC ratio not done. 06/14 presents for BP check. Again mildly elevated. Denies headache, visual disturbances, epigastric pain. Hands mildly swollen. Recommended that she be evaluated on CBC. Need for more monitoring and PC ratio reviewed. She prefers to do PC ratio at the lab and follow up as needed. Will follow today and have her come to CBC if PC ratio is elevated. Will schedule for BP check, BPP, and labs next week. Preeclampsia warning signs reviewed in detail. Will call with any concerning symptoms. Pre-eclampsia affecting puerperium 06/14/2021 07/27/2021 Overview (06/14/2021): Sustained hypertension with p/c ratio 1.3 status on admission to [facility] Jun 14- RNST, Cat 1 with low SANDRA of 6.6 Detailed discussion via color repairer of mild vs severe features, the former would be managed with more frequent office visits, labs, NST/ BPPs with induction at 37 weeks If severe features develop, then delivery will be necessary even if < 37 weeks Oligohydramnios in third trimester 06/14/2021 08/02/2021 Overview (06/14/2021): SANDRA 6.6 on Jun 14 on the CBC, with RNST Cat 1 Assessment & Plan (06/15/2021 4:00 PM EST): SANDRA today 8.05 cm with BPP 02/26 Will need weekly BPP/SANDRA Elevated blood pressure affe cting in third trimester, antepartum 06/14/2021 2 Assessment & Plan (06/14/2021 8:09 PM EST): Denies CLIFFORD, RUQ pain, visual changes. Discussed need for further evaluation to patient - offered CBC observation for serial BPs and labs vs doing labs outpatient and RTO tomorrow for repeat BP check. Kush prefers to do labs outpatient and was scheduled with CNM tomorrow. Reviewed s/s of PEC and patient was instructed to call with any of these. Rubella non-immune status, antepartum 03/09/2021 07/27/2021 Overview (03/09/2021): Avoid exposure during / advise vaccination pp Assessment & Plan (03/14/2021 3:23 PM EDT): Counseled re: rubella status and need for vaccination . Encounter for supervision of normal first in third trimester 02/20/2021 07/27/2021 Overview (06/13/2021): SARA MILLER OB-CMI score: 0 [01/10/2021] Its a boy! Group PN care? * Rh positive GC/Chlam neg PAP 01/2020 Tapestry nl Tdap 05/30/21 Flu 05/11/21 Hgb 12.3 GTT 104 28 wk Repeat RPR NR GBS * PPBC * screening nl NT/neg AFP Assessment & Plan (06/14/2021 8:10 PM EST): Patient seen with interpretor. Feeling well. Visit focused on elevated BP and recommendations. Assessment & Plan (05/30/2021 3:15 PM EST): Kush is feeling well. States last Marv she had cramps like her period, but they went away. We discussed the importance of increased po fluids. We also discussed signs of labor and when/how to contact CNM. tdap offered and accepted. Assisted pt and partner in filling out their pre-admission paperwork. Pt c/o wrist pain since last Saturday. States it hurts to move it. Tried calling pcp but they have no appts. Plans to go to ER for eval. Bony, tender protrusion on medial aspect of right wrist. Assessment & Plan (05/11/2021 9:56 AM EDT): Kush is feeling very well. No questions or concerns. Taking her vitamins. Here with Quan her partner. Couple very excited to meet baby. All preps in place. Pt reports she feels consistent fm, denies vb, lof, ctxs. We discussed visits now q 2 weeks. Assessment & Plan (04/13/2021 9:00 AM EDT): Kush is a 30 y.o. at 24w4d states she feels well today. Denies any concerns at this time. Denies any LOF/Vaginal bleeding/Ucs. Reports +FM -Discussed FM at this GA -Review signs and symptoms of Pre-term Labor and when/how to contact midwives -2nd trimester labs discussed for 28 wks. -Pt advised to come in earlier NV and stop at the lab first to drink glucose drink prior to coming up for her CAIT visit. -Advised on Tdap administration in and implications. Administered between 28-36wk. -NV in 4 weeks Assessment & Plan (03/14/2021 4:10 PM EDT): Kush is feeling well and is happy about survey u/s today. She denies LOF, bleeding, cramping. She perceives FM. She has no ob concerns today. She is seen with her partner and with color repairer. RTO 4 weeks. Assessment & Plan (02/20/2021 4:15 PM EDT): Kush is a . She is seen with senior recruiter. She is feeling fairly well though does have some nausea and intermittent vomiting. Relief measures/strategies reviewed. She denies LOF, bleeding, cramping. Will have ob labs and AFP today. RTO 3 weeks for survey u/s and ov; monitor n/v. Family planning 04/11/2020 02/20/2021 Assessment & Plan (04/11/2020 5:10 PM EDT): Needs to see if insurance covers infertility testing/ treatment, which is different from testing for recurrent SAb (has [facility] healthnet, usually does not cover Immunizations Immunization Administration Dates Next Due COVID-19 (Pre-05/13) Pfizer Vaccine, mRNA, PF ,10/19/2020 Influenza Quadrivalent Preservative Free IM 08/2023,05/11/2021 Influenza, Unspecified Formulation 06/10/2018 MMR 06/21/2021 Tdap 05/30/2021 Family History Medical History Relation Comments Diabetes mellitus Father Cirrhosis Maternal Grandmother Diabetes mellitus Mother Heart disease Mother Cirrhosis Paternal Grandmother Diabetes Paternal Grandmother No Known Problems Son Relation Status Comments Brother Alive Father Alive Maternal Grandfather Alive Maternal Grandmother Mother Alive Paternal Grandfather Paternal Grandmother Sister Alive Son Alive Social History Tobacco Use Types Packs/Day Years Used Date Smoking Tobacco: Never Smokeless Tobacco: Never Alcohol Use Standard Drinks/Week Comments Never 0 (1 standard drink = 0.6 oz pur e alcohol) Education Answer Date Recorded Are you interested in more education? Not on jean e 11/16/2022 Are you concerned about learning? Not on file 11/16/2022 No 11/16/2022 No 11/16/2022 Digital Access Answer Date Recorded No 12/14/2022 No 12/14/2022 Reliable internet access at home? Not on file 12/14/2022 Device with a working camera? Not on file Intimate Partner Violence Answer Date R ecorded Are you denied basic needs s uch as food, clothing, or medical care? No 01/09/2025 In the past 12 months have y ou been in a relationship with a person who hurts, threatens, or tries to control you? No 01/09/2025 Are you denied basic needs s uch as food, clothing, or medical care? No 01/09/2025 In the past 12 months have y ou been in a relationship with a person who hurts, threatens, or tries to control you? 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 Not on file Not on file Last Filed Vital Signs Vital Sign Reading Time Taken Comments Blood Pressure 148/98 01/10/2025 12:28 AM EDT Pulse 76 01/10/2025 12:28 AM EDT Temperature 36.3 C (97.4 F) 01/10/2025 12:28 AM EDT Respiratory Rate 16 01/10/2025 12:28 AM EDT Oxygen Saturation 98% 01/10/2025 12:28 AM EDT Inhaled Oxygen Concentration - - Weight 81.6 kg (180 lb) 01/09/2025 9:22 PM EDT Height 149.9 cm (4' 11 ) 08/23/2023 9:29 AM EST Body Mass Index 36.36 08/23/2023 9:29 AM EST Plan of Treatment Health Maintenance Due Date Last Done Comments DEPRESSION SCREENING 2002 BLOOD PRESSURE 06/27/2024 12/27/2023 INFLUENZA VACCINE (#1) 2025 , 05/11/2021, 06/10/2018 COVID-19 VACCINE (2024-2 6 season) 2025 07/24/2021, 11/16/2020, 10/19/2020 PAP SMEAR 08/16/2028 08/16/2023, 03/07/2020 Adult Td,Tdap Booster 12/30/2033 12/31/2023 , 05/30/2021, 06/10/2018 HEPATITIS C SCREENING Completed 08/23/2023 , 02/21/2021 HIV ONE-TIME SCREENING (18-6 5 YEARS) Completed 08/23/2023 SMOKING STATUS SCREENING (On ce After 26 Yrs) Completed 09/27/2023 HEPATITIS A VACCINES Aged Out No long er eligible based on patient's age to complete this topic HIB VACCINES Aged Out No longer eligi ble based on patient's age to complete this topic MENINGOCOCCAL VACCINES (ACWY) Aged Out No longer eligible based on patient's age to complete this topic MENINGOCOCCAL VACCINES (B) Aged Out N o longer eligible based on patient's age to complete this topic PNEUMOCOCCAL VACCINES (0-49 years) Aged Out No longer eligible b ased on patient's age to complete this topic Medical Devices Not on file Procedures Procedure Name Priority Date/Time Associated Diagnosis Comments HEPATITIS C ANTIBODY, QUALITATIVE Routine 08/23/2023 10:05 AM EST Supervision of high risk in first trimester PAP TEST Routine 08/16/2023 12:00 AM EST from Last 3 Months or Most Recently Relevant to Health Maintenance Results * Hepatitis C antibody, qualitative (08/23/2023 10:05 AM EST) HCV NON-REACTIV E NON-REACTI VE [facility] Blood 08/23/2023 10:0 5 AM EST 08/23/2023 10:09 AM EST Mayuri ANDR[facility] BLOOD ORDERABLES Final Resu lt [address] [address] * Pap Test (08/16/2023 12:00 AM EST) 08/16/2023 08/19/2023 8:3 2 AM EST Narrative SEE NARRATIVE - 08/22/2023 3:39 PM EST [address] [address] Substation Designer: Marlin Cason MD VOCATIONAL REHABILITATION COUNSELOR Cytology Report FINAL DIAGNOSIS / A. PAP SMEAR (SUREPATH) CE: SPECIMEN ADEQUACY: Satisfactory for evaluation; transformation zone absent/insufficient. INTERPRETATION: NEGATIVE FOR INTRAEPITHELIAL LESION OR MALIGNANCY. Reactive changes. Electronically Signed Out By: Peter DAVID Pollard MD(ASCP) By his/her signature above, the pathologist listed as making the Final Diagnosis certifies that he/she has personally reviewed this case and confirmed or corrected the diagnosis. The Pap test is a screening test primarily for squamous cancers and precursors and has associated false-negative and false-positive results. New technologies such as liquid-based preparations may decrease but will not eliminate all false-negative results. Regular sampling and follow-up of unexplained clinical signs and symptoms are recommended to minimize false negative results. PROCEDURES/ADDENDA HPV Testing (Requested) Ordered Date: 08/19/2023 A. PAP SMEAR (SUREPATH) CE: Human Papilloma Virus Test NEGATIVE for high-risk Human Papilloma Virus types 16, 18, 45 and the Other high risk probe set (Includes 31, 33, 35, 39, 51, 52, 56, 58, 59, 66, 68) Note: Testing performed by [employer] HR-HPV analysis. Clinical correlation is advised. This HPV test was performed at [facility], [address] [place] [address]. This test has been FDA approved for SurePath cervical cytology specimens. The accuracy and precision of this test for all other specimen sources has been verified in the Cytopathology Laboratory of the [facility] and has not been cleared or approved by the U.S. Food and Drug Administration. Clinical correlation is advised. CLINICAL HISTORY Date of Last Menstrual Period: 05-15-2023 Menstrual History: Other Clinical Conditions: Screening Pap SPECIMEN SOURCE A: PAP SMEAR (SUREPATH) CE Patient Name: KUSH GILES : 1990 (Age: 32) Sex: F Institution: [facility] Location: [facility] Date of Collection: 08/16/2023 Date of Reported: 08/22/2023 15:39 Results to: Mayuri Ayala CNM us Mayuri Ayala CNM CYTOLOGY ORDERABLES Final Resul t SEE NARRATIVE from Last 3 Months or Most Recently Relevant to Health Maintenance Insurance C3 ACO C3 ACO C3 ACO C3 ACO C3 ACO C3 ACO Advance Directives For more information, please contact: [phone] (9AM - 5PM [facility], Saturday-Saturday) * Full Code (Latest Code Status on File) Date Activated Date Inactivated Comments 06/19/2021 5:03 PM Question Answer Comments Code Status Confirmed With: Patient * Full Code Date Activated Date Inactivated Comments 06/15/2021 3:53 PM 06/19/2021 5:03 PM Question Answer Comments Code Status Confirmed With: Patient * Full Code Date Activated Date Inactivated Comments 06/14/2021 6:43 PM 06/15/2021 3:53 PM Question Answer Comments Code Status Confirmed With: Patient Care Teams Systems Analyst Relationship Specialty Start Date End Date Shayan Farris MD [address] [address] PCP - General Family Medicine 03/09/21 Additional Source Comments The information contained in this document represents components of the legal health record. It is not the complete legal health record.[facility]
--- OUTSIDE RECORDS SUMMARY | 2025-04-14 14:54 | XMS_ITS | Encounter Summary ---
Author Organization [employer] Address [address] [place] [address] Care Team Providers Care Animal Nutrition Consultant Name Role Phone Sandy Riddle MD Primary Care Pro vider Encounter Details Date Type Department Care Team ([facility] st Contact Info) Description 04/12/2025 Telephone [facility] [address], [place] [phone] Ermelinda Beltran MA Social History Tobacco Use Types Packs/Day Years [...] encounter Miscellaneous Notes * Telephone Encounter - Ermelinda Beltran MA - 04/12/2025 9:32 AM EDT no answer ,left a vm documented in this encounter Plan of Treatment Upcoming Encounters Date Type Department Care Team (Late st Contact Info) Description 05/14/2025 9:00 AM EDT Nutrition [facility] [address] [place] [address] [place] [address] documented as of this encounter Visit Diagnoses Not on filedocumented in this encounter Additional Health Concerns Assessment Noted Time PHQ-9 Depression Total Score: 0 12/12/19 25 9:48 AM EDT documented as of this encounter Care Teams Animal Nutrition Consultant Relationship Specialty Start Date End Date Sandy Riddle MD [address] [place] [address] PCP - General Internal Medicine 12/14/22 documented as of this encounter
== END 2025-04-14 09:24 | disposition home or self-care (01) ==
LOC: HO.HHCLNP 09:23
PROVIDERS: Visit Provider Student in an Organized Health Care Education/Training Program
DX: Z00.00 Encounter for general adult medical examination without abnormal findings (principal); Z11.8 Encounter for screening for other infectious and parasitic diseases; Z11.3 Encounter for screening for infections with a predominantly sexual mode of transmission
CPT/HCPCS: 87491; 87591